=== PATIENT | male | born 1965 | race Caucasian/White ===

== ENCOUNTER 2022-10-21 14:06 | Emergency (ER) | payer MEDICARE, SELFPAY ==
[2022-10-21 14:15] VITALS: BP 149/81; PULSE 81; RESP 24; TEMP 36.7; O2SAT 100; BMI 21.5
[2022-10-21 14:31] VITALS: PULSE 84; O2SAT 100
[2022-10-21 14:32] VITALS: BP 179/97; PULSE 88; O2SAT 100
[2022-10-21 14:37] VITALS: BP 153/78; PULSE 85; O2SAT 100
--- NOTE | 2022-10-21 14:37 | CRLHL7_ITS ---
For Patients: As a result of the Cures Act, medical imaging exams and procedure reports are released immediately into your electronic medical record. You may view this report before your referring provider. If you have questions, please contact your health care provider. INDICATION: Injury and pain. TECHNIQUE: Chest and left ribs 3 views. COMPARISON: None. FINDINGS: Cardiovascular and mediastinum: Heart size and vasculature are normal in caliber and appearance. Mediastinum is within normal limits. Lungs and pleural spaces: Lungs are clear. No sign of infiltrate or mass. No sign of pleural effusion. No pneumothorax. Bones and soft tissues: Detailed oblique images of the left ribs demonstrate no fractures or bone lesions. IMPRESSION: Unremarkable chest and left ribs. Dictated by Hayley Rosales MD @ 10/21/2022 4:25:30 PM (Electronically Signed)
[2022-10-21 14:38] VITALS: PULSE 82; O2SAT 100
--- NOTE | 2022-10-21 14:54 | ED.CHESTPAIN ---
HPI - Chest Pain General Date Seen: 10/21/22 Chief Complaint: Shortness of Breath/Dyspnea Stated Complaint: Possible collapsed lung Time Seen by Provider: 10/21/22 14:09 Source: patient Mode of arrival: ambulatory Limitations: no limitations History of Present Illness HPI narrative: Patient is a 49-year-old gentleman who presents here with left-sided chest pain, he was in for his pulmonary rehab today, and told the pulmonary rehab person that he is having left-sided chest pain. He hit himself with the bar while he was removing oil clarke a week ago, on the left side of his chest and since then he has had increasing pain there. They are worried or least the therapeutic sales specialist was worried about a possible pneumothorax and sent him to the emergency room to be seen. He has been using his chronic pain medications which he takes for his neck, for the discomfort both gabapentin and Suboxone, this is also further with Tylenol. He has a history of severe emphysema and COPD on chronic oxygen for the last 10 years. He is on 3 L a day. MD complaint: chest pain Risk Factors Coronary artery disease risk factors: smoking history Thoracic aortic dissection risk factors: none Related Data Home Medications Medication Instructions Recorded Confirmed budesonide 0.5 mg/2 mL suspension 1 DAILY 10/21/22 for nebulization buprenorphine 8 mg-naloxone 2 mg 10 mg sublingual BID 10/21/22 10/21/22 sublingual film escitalopram oxalate 20 mg tablet 20 mg PO DAILY 10/21/22 10/21/22 formoterol fumarate 20 mcg/2 mL 1 inhalation BID 10/21/22 solution for nebulization gabapentin 300 mg capsule 900 mg PO 3XD 10/21/22 10/21/22 ipratropium 0.5 mg-albuterol 3 mg 1 inhalation QID PRN wheezing 10/21/22 (2.5 mg base)/3 mL nebulization soln nortriptyline 25 mg capsule 25 mg PO DAILY 10/21/22 10/21/22 pantoprazole 40 mg tablet,delayed 40 mg PO QAM 10/21/22 10/21/22 release Allergies Allergy/AdvReac Type Severity Reaction Status Date / Time morphine Allergy Verified 10/21/22 14:22 asa AdvReac Uncoded 10/21/22 14:22 Review of Systems Status of ROS Reports: 10 or more systems reviewed and unremarkable except as noted in History and below PFSH PFSH Social History Smoking Status: Current every day smoker What tobacco products do you use: cigarettes Do you use any of these nicotine containing products: None Second hand tobacco smoke exposure: No How often do you have a drink containing alcohol: never How often do you have six or more drinks on one occasion: Never AUDIT-C Alcohol total score: 0 Non-prescribed substance use: denies use service: No Exam Narrative Exam Narrative: I have seen him in room 1, he is speaking to me in full sentences, with good saturations. Complaining of left-sided chest discomfort where he was struck on the left side midclavicular line the radiates around. Worse when he takes a deep breath in. And there is pinpoint tenderness along 8th and 9th rib. No bruising is noted, he has good air entry bilaterally, with prolonged expiratory phase, is heart sounds are distant faint but otherwise normal with no S3-S4 clicks murmurs or gallops. Abdomen is soft there is no guarding no tenderness, no organomegaly Const Vital Signs, click to edit/add: Vital Signs - 24 hr 10/21/22 14:15 10/21/22 14:31 10/21/22 14:32 Temperature 98.0 F Pulse Rate 84 88 Pulse Rate [Pulse Oximeter] 81 Respiratory Rate 24 Blood Pressure 179/97 H Blood Pressure [Right Upper Arm] 149/81 H Pulse Oximetry 100 100 100 Oxygen Delivery Method Nasal Cannula Nasal Cannula Nasal Cannula Oxygen Flow Rate 3 3 3 10/21/22 14:37 10/21/22 14:38 10/21/22 15:19 Temperature Pulse Rate 85 82 Pulse Rate [Pulse Oximeter] Respiratory Rate Blood Pressure 153/78 H Blood Pressure [Right Upper Arm] Pulse Oximetry 100 100 100 Oxygen Delivery Method Nasal Cannula Nasal Cannula Nasal Cannula Oxygen Flow Rate 3 3 3 Course Course Hospital Course: Discussed with the patient there is no evidence of a collapsed lung this may be however consistent with a contusion for sure of the rib and they can be painful regular Tylenol for the discomfort, and follow-up with primary care. As needed. Review of the radiology findings with patient. Vital Signs Vital signs: Initial Vital Signs Temperature 98.0 F 10/21/22 14:15 Temperature Source Temporal Artery Scan 10/21/22 14:15 Pulse Rate 81 10/21/22 14:15 Pulse Rhythm 10/21/22 14:15 Respiratory Rate 24 10/21/22 14:15 Blood Pressure 149/81 H 10/21/22 14:15 Blood Pressure Mean 103 10/21/22 14:15 Blood Pressure Position Sitting 10/21/22 14:15 Pulse Oximetry 100 10/21/22 14:15 Oxygen Delivery Method 10/21/22 14:15 Oxygen Flow Rate 3 10/21/22 14:15 Vital Signs Temperature 98.0 F 10/21/22 14:15 Pulse Rate 81 10/21/22 14:15 Respiratory Rate 24 10/21/22 14:15 Blood Pressure 149/81 H 10/21/22 14:15 Pulse Oximetry 100 10/21/22 14:15 Oxygen Delivery Method 10/21/22 14:15 Oxygen Flow Rate 3 10/21/22 14:15 Temperature 98.0 F 10/21/22 14:15 Pulse Rate 82 10/21/22 14:38 Respiratory Rate 24 10/21/22 14:15 Blood Pressure 153/78 H 10/21/22 14:37 Pulse Oximetry 100 10/21/22 15:19 Oxygen Delivery Method 10/21/22 15:19 Oxygen Flow Rate 3 10/21/22 15:19 MDM - Chest Pain MDM Narrative Medical decision making narrative: I explained to the patient that we will do a chest x-ray and left-sided rib views, as I suspect that this is a contusion from his injury. I am not thinking that he has a collapsed lung given the time course of this. During the evaluation of this patient I considered multiple differential diagnosis is. The life-threatening differential diagnosis include coronary disease/[place], pulmonary embolism, pneumothorax, pneumonia, and aortic dissection. Other differential diagnosis included but were not limited to pericarditis, myocarditis, chest wall pain, GERD, esophageal rupture, rib fracture contusion, pleurisy, as well as other etiologies. Medical Records Data Attestation: I reviewed the patient's medical records. Imaging Data Chest x-ray: Attestation: I have reviewed the pertinent imaging results. My impression: I wonder if there is a questionable fracture along the 7th or so rib laterally, I reviewed with radiologist and he saw no fracture. Radiologist's impression: Patient: MIGUEL SHAY Facility:?[facility] Patient ID:?[id number] Site Patient ID:?[id number]. Site :?[id number] Study:?XRay Chest and Left ribs-10/21/2022 3:06:03 PM Ordering Physician:Олег Winter Final Report: INDICATION: Injury and pain. TECHNIQUE: Chest and left ribs 3 views. COMPARISON: None. FINDINGS: Cardiovascular and mediastinum: Heart size and vasculature are normal in caliber and appearance. Mediastinum is within normal limits. Lungs and pleural spaces: Lungs are clear. No sign of infiltrate or mass. No sign of pleural effusion. No pneumothorax. Bones and soft tissues: Detailed oblique images of the left ribs demonstrate no fractures or bone lesions. IMPRESSION: Unremarkable chest and left ribs. Dictated by Hayley Rosales MD @ 10/21/2022 4:25:30 PM (Electronic Signature) Discharge Plan Discharge Clinical Impression: Contusion of rib on left side Patient Disposition: Home w/ Parent or Adult Condition: Stable Instructions: Contusion in Adults (ED) Additional Instructions: Home rest use of Tylenol for the discomfort, I went over with the radiologist that there is no rib fracture, this could be a rib contusion however and they can also be very painful. Would suggest rest, regular Tylenol, follow-up is needed there is definitely no evidence of a collapsed lung. Prescriptions: No Action ipratropium-albuterol 0.5 mg-3 mg(2.5 mg base)/3 mL solution for nebulization 1 INHALATION QID PRN (Reason: wheezing) nortriptyline 25 mg capsule 25 mg PO DAILY pantoprazole 40 mg tablet,delayed release (DR/EC) 40 mg PO QAM gabapentin 300 mg capsule 900 mg PO 3XD budesonide 0.5 mg/2 mL suspension for nebulization 1 DAILY escitalopram oxalate 20 mg tablet 20 mg PO DAILY formoterol fumarate 20 mcg/2 mL solution for nebulization 1 INHALATION BID buprenorphine-naloxone 8-2 mg film 10 mg sublingual BID Follow Up/Referrals: Provider,Not a Local [Primary Care Provider] - Stand Alone Forms: MyHealth Info Instructions
[2022-10-21 15:19] VITALS: O2SAT 100
--- NOTE | 2022-10-21 16:59 | ED.NURSE ---
Pt and left without receiving discharge paperwork from nursing.
== END 2022-10-21 16:45 | disposition home or self-care (01) ==
PROVIDERS: Emergency Provider Family Medicine
DX: S20.212A Contusion of left front wall of thorax, initial encounter (principal); W22.8XXA Striking against or struck by other objects, initial encounter
CPT/HCPCS: 71101; 99283